=== PATIENT | female | born 1980 | race Caucasian/White ===

== ENCOUNTER 2022-01-30 11:44 | Day surgery (SDC) | payer OTHER ==
[2022-01-29 13:16] LABS: COVID AG,FIA SOURCE NASOPHARYNGEAL
[~2022-01-30] VITALS: Ht 160 cm; Wt 144.5 kg
[~2022-01-30 11:44] MED LIST: ATOR40TA28 PO; INSLAN SQ; INSU100I26 SQ; INSU100V36 SQ; LISI-894 PO; METF-1211 PO; SEMA0.25 SQ; SODIUM CHLORIDE 0.9% 1,000 ML IV ONE; SODIUM CHLORIDE 0.9% 1,000 ML ONE
[2022-01-30] MEDS ORDERED: PROPOFOL 1% 20 ML VIAL IVP ONE (11:45)
[2022-01-30 12:31] LABS: GLUCOMETER DEV NAME(LOC) SDS.; GLUCOSE,POINT OF CARE 219 MG/DL (70-110)
== END 2022-01-30 17:05 | disposition home or self-care (01) ==
LOC: SURGERY 11:44
PROVIDERS: ATTEND Internal Medicine Gastroenterology
DX: D50.9 Iron deficiency anemia, unspecified (principal); K64.8 Other hemorrhoids; K21.00 Gastro-esophageal reflux disease with esophagitis, without bleeding; K29.70 Gastritis, unspecified, without bleeding; I10 Essential (primary) hypertension; E11.9 Type 2 diabetes mellitus without complications; Z98.890 Other specified postprocedural states; Z79.899 Other long term (current) drug therapy; E66.01 Morbid (severe) obesity due to excess calories; Z90.49 Acquired absence of other specified parts of digestive tract; Z20.822 Contact with and (suspected) exposure to COVID-19
CPT/HCPCS: 87426; 84703; 43239; 45378; 82962; C9803; C1769; J2704; J7030